=== PATIENT | female | born 1965 | race American Indian/Alaskan Native ===

== ENCOUNTER 2017-03-22 08:04 | Emergency (ER) | payer OTHER ==
[2017-03-22 08:22] VITALS: BP 109/82
[2017-03-22 08:57] LABS: Bacteria,Urine 1+ /HPF (Negative); Mucus,Urine FEW /HPF
[2017-03-22 08:58] LABS: Bilirubin,Urine Negative (Negative); Blood,Urine Negative (Negative); Ketones,Urine Negative (Negative); Protein,Urine <15 mg/dL mg/dL (Negative)
[2017-03-22 08:59] LABS: Leukocyte Esterase,Urine Negative (Negative); Nitrite,Urine Negative (Negative); Urobilinogen,Urine < 2.0 mg/dL (<2.0)
--- NOTE | 2017-03-22 12:22 | Emergency Department Report ---
ED Female HPI - General Chief complaint: Urogenital-Female Stated complaint: painful urination Source: patient Mode of arrival: Ambulatory Limitations: No Limitations - History of Present Illness Initial comments: 51 y/o F presents with pain with urination. She states that she feels that she has to strain to urinate; admits to frequency and urgency of urination. She denies any fever, chills, or low back pain. She denies a PMHX of STD. She states that she has noticed a foul smell of her urine for the past couple weeks , she has been taking azo pills with no relief of the symptoms. Pt states that the last time she had BV she felt this way. She states that she has gone through early menopause. NKDA. CALABRESE Complaint: other (urinary symptoms) -: week(s) (2-3 ) Location: suprapubic Radiation: non-radiating Severity: mild, moderate Consistency: constant Are you Now?: No (no more periods, menopause early per patient) Associated Symptoms: dysuria - Related Data Previous Rx's Medication Instructions Recorded Last Taken Type Acetamin/Codeine 120-12Mg/5 ml 5 ml PO TID PRN #40 oz 05/20/14 Unknown Rx [Tylenol/Codeine 120-12 mg/5 ml] Cephalexin Oral Liqd(Nf) [Keflex 250 mg PO Q6H #7 day 05/20/14 Unknown Rx 125 mg/5 ml] Cyclobenzaprine [Flexeril] 10 mg PO TID PRN #30 tablet 02/11/16 Unknown Rx Ibuprofen [Motrin] 800 mg PO Q8HR PRN #30 tablet 02/11/16 Unknown Rx metroNIDAZOLE [Flagyl] 500 mg PO Q12HR #14 tab 03/22/17 Unknown Rx Allergies Allergy/AdvReac Type Severity Reaction Status Date / Time No Known Allergies Allergy Verified 05/29/14 14:54 ED Review of Systems ROS: Stated complaint: painful urination Other details as noted in HPI Constitutional: denies: chills, fever Eyes: denies: eye pain, eye discharge, vision change ENT: denies: ear pain, throat pain Respiratory: denies: cough, shortness of breath, wheezing Cardiovascular: denies: chest pain, palpitations Gastrointestinal: denies: abdominal pain, nausea, diarrhea Genitourinary: urgency, dysuria, frequency Skin: denies: rash, lesions Neurological: denies: headache, weakness, paresthesias Psychiatric: denies: anxiety, depression ED Past Medical Hx - Past Medical History Hx Hypertension: Yes Additional medical history: GRAVES DISEASE. hypothyroid - Surgical History Additional Surgical History: esophageal surg - Social History Smoking Status: Never Smoker Substance Use Type: None - Medications Home Medications: Home Medications Medication Instructions Recorded Confirmed Last Taken Type Acetamin/Codeine 120-12Mg/5 ml 5 ml PO TID PRN #40 oz 05/20/14 Unknown Rx [Tylenol/Codeine 120-12 mg/5 ml] Cephalexin Oral Liqd(Nf) [Keflex 250 mg PO Q6H #7 day 05/20/14 Unknown Rx 125 mg/5 ml] Cyclobenzaprine [Flexeril] 10 mg PO TID PRN #30 tablet 02/11/16 Unknown Rx Ibuprofen [Motrin] 800 mg PO Q8HR PRN #30 tablet 02/11/16 Unknown Rx metroNIDAZOLE [Flagyl] 500 mg PO Q12HR #14 tab 03/22/17 Unknown Rx ED Physical Exam - General Limitations: No Limitations General appearance: alert, in no apparent distress - Head Head exam: Present: atraumatic, normocephalic - Eye Eye exam: Present: normal appearance - ENT ENT exam: Present: mucous membranes moist - Respiratory Respiratory exam: Present: normal lung sounds bilaterally. Absent: respiratory distress - Cardiovascular Cardiovascular Exam: Present: regular rate, normal rhythm. Absent: systolic murmur, diastolic murmur, rubs, gallop - GI/Abdominal GI/Abdominal exam: Present: soft, normal bowel sounds, other (there was suprapubic tenderness ) - Speculum exam: Present: other (this examination was denied) - Back Exam Back exam: Present: normal inspection, full ROM, other (no CVAT tenderness or flank pain) - Neurological Exam Neurological exam: Present: alert, oriented X3 - Psychiatric Psychiatric exam: Present: normal affect, normal mood - Skin Skin exam: Present: warm, dry, intact, normal color, other (well-healed surgical scars noted on the abdomen). Absent: rash ED Course Vital Signs 03/22/17 08:17 Temperature 98.4 F Pulse Rate 91 H Respiratory 17 Rate Blood Pressure 109/82 O2 Sat by Pulse 99 Oximetry ED Medical Decision Making - Medical Decision Making Pt refused to have me conduct the pelvic exam on her today. She states that she would like to swab herself. She also refuses a pregancy test at this time, stating there is no chance. I have sent out a urine culture today as the UA results were not impressive for UTI at this time. I spoke to Dr. Florian regarding this case. Wet prep indicates that the patient was positive for BV, she was treated with Flagyl and educated to follow-up with OBGYN with continued or worsening symptoms. Pt was discharged in stable condtion, alert and oriented , in no resp distress, vitals were stable. Critical care attestation.: If time is entered above; I have spent that time in minutes in the direct care of this critically ill patient, excluding procedure time. ED Disposition Clinical Impression: Bacterial vaginosis Disposition: - TO HOME OR SELFCARE Is pt being admited?: No Does the pt Need Aspirin: No Condition: Stable Instructions: Metronidazole (By mouth), Bacterial Vaginosis (ED) Additional Instructions: Please complete your full course of antibiotic, do not take this medication with alcohol. Please follow-up with PCP within 3-5 days. OBGYN within 1 week. Please return to the ER immediately if your presenting symptoms progress or worsen. Prescriptions: metroNIDAZOLE [Flagyl] 500 mg PO Q12HR #14 tab Referrals: [facility] [Outside] - 3-5 Days [facility] [Outside] - 3-5 Days YONATAN SCHULTZ CNM [Staff Physician] - 3-5 Days PRIMARY CARE,MD [Primary Care Provider] - 3-5 Days Forms: STI Treatment and Prevention, Work/School Release Form(ED)
== END 2017-03-22 13:09 | disposition home or self-care (01) ==
LOC: ED 08:04
DX: N76.0 Acute vaginitis (principal); I10 Essential (primary) hypertension; E03.9 Hypothyroidism, unspecified
CPT/HCPCS: 81001; 87086; 87210; 99283